=== PATIENT | female | born 1965 | race American Indian/Alaskan Native ===

== ENCOUNTER 2020-01-18 16:15 | Emergency (ER) | payer MEDICAID, MEDICARE ==
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
[2020-01-18 18:44] VITALS: BP 152/85
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
[2020-01-18] MEDS ORDERED: IBUPROFEN 600 MG TAB PO ONE ×2 (21:23→21:28)
== END 2020-01-18 21:31 | disposition home or self-care (01) ==
LOC: ED 16:15
DX: S39.012A Strain of muscle, fascia and tendon of lower back, initial encounter (principal); M25.512 Pain in left shoulder; M25.551 Pain in right hip; I10 Essential (primary) hypertension; M19.91 Primary osteoarthritis, unspecified site; F20.9 Schizophrenia, unspecified; F17.200 Nicotine dependence, unspecified, uncomplicated; Z98.890 Other specified postprocedural states; Z79.899 Other long term (current) drug therapy; Z88.1 Allergy status to other antibiotic agents; Z88.2 Allergy status to sulfonamides; V49.49XA Driver injured in collision with other motor vehicles in traffic accident, initial encounter; Y93.89 Activity, other specified; Y92.410 Unspecified street and highway as the place of occurrence of the external cause; Y99.8 Other external cause status
CPT/HCPCS: 72100